=== PATIENT | male | born 1955 | race African-American/Black ===

== ENCOUNTER 2016-06-11 20:32 | Emergency (ER) | payer BC ==
[2016-06-11] MEDS ORDERED: PHENYLEPHRINE .5% NA SPR 15 ML BTL ONE (21:13)
[2016-06-11] MEDS ORDERED: COCAINE HCL 4% TOPICAL ONE (21:14)
[2016-06-11] MEDS ORDERED: LABETALOL 100 MG/20 ML VIAL ONE (21:28)
[2016-06-11] MEDS ORDERED: METOPROLOL XL 50 MG TAB PO ONE (22:25)
[2016-06-11] MEDS ORDERED: LISINOPRIL 20 MG TAB PO ONE (22:55)
== END 2016-06-12 01:07 | disposition home or self-care (01) ==
LOC: ER 20:32
CPT/HCPCS: 36415; 80053; 85025; 85610; 96374